=== PATIENT | male | born 1965 | race African-American/Black ===

== ENCOUNTER 2017-04-16 15:13 | Emergency (ER) | payer MEDICAID, OTHER ==
[~2017-04-16] VITALS: Ht 175.3 cm; Wt 66.0 kg
[2017-04-16] MEDS ORDERED: SODIUM CHLORIDE 0.9% 1,000 ML IV ONE (17:38)
[2017-04-16] MEDS ORDERED: MORPHINE SULFATE 4 MG/ML CPJ (NOT FOR IM USE) IV STA (17:38)
[2017-04-16 18:17] LABS: HEMATOCRIT. 34.6 % (42.0-52.0); HEMOGLOBIN. 11.3 g/dL (14.0-18.0); MEAN CORPUSCULAR HEMOGLOBIN 32.4 pg (28.0-32.0); MEAN CORPUSCULAR VOLUME 99.2 fL (80.0-94.0); MEAN PLATELET VOLUME 8.7 fl (7.4-10.4); PLATELET 221 x1000/uL (130-400); RED BLOOD CELL COUNT 3.48 mill/uL (4.7-6.1); RED CELL DISTRIBUTION WIDTH 14.9 % (11.6-14.6)
[2017-04-16 18:23] LABS: CHLORIDE 108 mEq/L (98-107)
[2017-04-16 18:29] LABS: CARBON DIOXIDE 26 mEq/L (21-32)
[2017-04-16 18:32] LABS: PLATELET ESTIMATE NORMAL
[2017-04-16 18:42] LABS: ETHANOL BLOOD 322 mg/dL
[2017-04-16] MEDS ORDERED: KETOROLAC 30MG/ML VIAL IV ONE (20:30)
[2017-04-16] MEDS ORDERED: THIAMINE HCL 100 MG, MVI, ADULT NO.1 10 ML in DEXTROSE 5% WATER 1,000 ML IV NR ×3 (21:00)
[2017-04-16 22:47] VITALS: BP 109/56
== END 2017-04-16 22:53 | disposition home or self-care (01) ==
LOC: ER 15:13
DX: S42.402A Unspecified fracture of lower end of left humerus, initial encounter for closed fracture (principal); S22.42XA Multiple fractures of ribs, left side, initial encounter for closed fracture; S42.032A Displaced fracture of lateral end of left clavicle, initial encounter for closed fracture; F10.129 Alcohol abuse with intoxication, unspecified; W17.89XA Other fall from one level to another, initial encounter; Y93.39 Activity, other involving climbing, rappelling and jumping off; Y92.89 Other specified places as the place of occurrence of the external cause; Y99.8 Other external cause status
CPT/HCPCS: 29105; 36415; 73030; 73060; 73070; 73090; 80048; 85025; 96361; 96365; 96375; 99285; G0482; J1885; J2270; J3411; J3490; J7030; J7070; Z7610

== ENCOUNTER 2018-04-25 14:50 | Emergency (ER) | payer MEDICAID ==
[~2018-04-25] VITALS: Ht 170.2 cm; Wt 75.0 kg
[2018-04-25] MEDS ORDERED: IBUPROFEN 600MG TABLET PO ONE (16:00)
[2018-04-25 16:10] VITALS: BP 130/88
== END 2018-04-25 17:02 | disposition home or self-care (01) ==
LOC: ER 16:50
DX: S42.001A Fracture of unspecified part of right clavicle, initial encounter for closed fracture (principal); X58.XXXA Exposure to other specified factors, initial encounter; Y93.89 Activity, other specified; Y92.89 Other specified places as the place of occurrence of the external cause; Y99.8 Other external cause status
CPT/HCPCS: 99282